=== PATIENT | female | born 1975 | race Caucasian/White ===

== ENCOUNTER 2017-02-26 15:45 | Emergency (ER) | END 2017-02-27 03:05 | disposition left against medical advice (07) ==

== ENCOUNTER 2017-06-12 10:28 | Outpatient (CLI) | END 2017-06-12 11:25 | disposition home or self-care (01) ==

== ENCOUNTER 2017-06-20 12:36 | Outpatient (CLI) | END 2017-06-20 14:05 | disposition home or self-care (01) ==

== ENCOUNTER 2017-07-19 07:30 | Inpatient (IN) | END 2017-07-22 13:29 | disposition home or self-care (01) | DRG 766 ==